=== PATIENT | female | born 1995 | race African-American/Black ===

== ENCOUNTER 2018-03-05 08:26 | Emergency (ER) | payer OTHER ==
[~2018-03-05] VITALS: Ht 160 cm; Wt 56.7 kg
[~2018-03-05 08:26] MED LIST: ACETAMINOPHEN-1 EAC1 PO; ANTIVERT25 MG PO; COLACE100 MG PO; FEOSOL325 M1 PO; IBUPROFEN 600600 M1 PO; KEFLEX500 MG PO; NORCO 5-325 TA1 EACH PO
[2018-03-05 08:35] VITALS: BP 106/78
[2018-03-05] MEDS ORDERED: TESSALON PERLE100 MG PO (09:34)
[2018-03-05] MEDS ORDERED: GUAIFENESIN-CODE5 ML PO (09:34)
[2018-03-05] MEDS ORDERED: PRILOSEC OTC20 MG PO (09:34)
== END 2018-03-05 09:22 | disposition home or self-care (01) ==
LOC: ER 08:26
DX: J06.9 Acute upper respiratory infection, unspecified (principal); R12 Heartburn; K21.9 Gastro-esophageal reflux disease without esophagitis

== ENCOUNTER 2019-06-23 20:58 | Emergency (ER) | payer OTHER ==
[~2019-06-23] VITALS: Ht 154.9 cm; Wt 61.2 kg
[~2019-06-23 20:58] MED LIST changes: +GUAIFENESIN-CODE5 ML PO; +PRILOSEC OTC20 MG PO; +TESSALON PERLE100 MG PO
[2019-06-23] MEDS ORDERED: LO LOESTRIN FE1 EACH PO (21:20)
[2019-06-23] MEDS ORDERED: BENADRYL25 MG PO (21:22)
[2019-06-23] MEDS ORDERED: PREDNISONE 20 M20 MG PO (21:22)
[2019-06-23 21:37] VITALS: BP 125/82
== END 2019-06-23 21:39 | disposition home or self-care (01) ==
LOC: ER 20:58
DX: L50.9 Urticaria, unspecified (principal)

== ENCOUNTER 2020-10-07 15:05 | Emergency (ER) | payer OTHER ==
[~2020-10-07] VITALS: Ht 154.9 cm; Wt 59.0 kg
[~2020-10-07 15:05] MED LIST changes: +BENADRYL25 MG PO; +LO LOESTRIN FE1 EACH PO; +PREDNISONE 20 M20 MG PO
[2020-10-07 16:18] LABS: URINE BILIRUBIN NEGATIVE (Negative); URINE BLOOD 3+ (Negative); URINE CLARITY CLEAR; URINE COLOR YELLOW; URINE GLUCOSE-RANDOM* NEGATIVE (Negative); URINE KETONES TRACE (Negative); URINE LEUKOCYTES-REFLEX NEGATIVE (Negative); URINE NITRITE-REFLEX NEGATIVE (Negative); URINE PROTEIN (DIPSTICK) NEGATIVE (Negative); URINE UROBILINOGEN 0.2 E.U./dl (0.2-1.0)
[2020-10-07 16:43] LABS: ABSOLUTE NEUTROPHILS 3.6 thou/uL (1.4-8.2)
[2020-10-07 16:45] LABS: EOSINOPHILS 1.3 % (0.0-3.0); HEMATOCRIT 41.5 % (37.0-47.0); HEMOGLOBIN 13.5 gm/dL (12.0-15.0); LYMPHOCYTES 31.6 % (24.0-44.0); MCH 28.6 pg (26.0-34.0); MCHC 32.5 g/dL (28.0-37.0); MONOCYTES 8.1 % (1.0-8.0); RBC 4.72 mil/uL (4.20-5.00); RDW 14.9 % (10.5-14.5); WBC 6.7 thou/uL (4.0-11.0)
[2020-10-07 16:53] LABS: CALCIUM 10.1 mg/dL (8.5-10.1); CREATININE 0.8 mg/dL (0.6-1.0)
[2020-10-07 16:55] LABS: POTASSIUM 3.9 mmol/L (3.5-5.1)
[2020-10-07 16:56] LABS: CASTS None Seen /LPF (None Seen); MUCUS 4-6 Moderate strn/LPF (None Seen); SQUAMOUS 4-10 Moderate /LPF (0-3)
[2020-10-07 16:57] LABS: BACTERIA-REFLEX None Seen /HPF (None Seen); CRYSTALS None Seen /LPF (None Seen); URINE RBC 0-2 Rare /HPF (0-2); URINE WBC-REFLEX 0-5 Rare /HPF (0-5)
[2020-10-07 17:14] LABS: PLATELET COUNT 271 thou/uL (150-400)
[2020-10-07 17:15] LABS: ANISOCYTOSIS 1+; OVALOCYTES FEW
[2020-10-07 18:17] VITALS: BP 114/85
== END 2020-10-07 18:17 | disposition home or self-care (01) ==
LOC: ER 15:05
PROVIDERS: Emergency Medicine
DX: O20.0 Threatened abortion (principal); Z79.899 Other long term (current) drug therapy; Z3A.01 Less than 8 weeks gestation of pregnancy

== ENCOUNTER 2020-10-21 20:15 | Emergency (ER) | payer OTHER ==
[~2020-10-21] VITALS: Ht 154.9 cm; Wt 58.1 kg
[2020-10-21] MEDS ORDERED: ALEVE220 M1 PO (20:25)
[2020-10-21 20:42] LABS: ABSOLUTE NEUTROPHILS 4.7 thou/uL (1.4-8.2); BASOPHILS 0.8 % (0.0-2.0); EOSINOPHILS 1.6 % (0.0-3.0); HEMATOCRIT 39.1 % (37.0-47.0); HEMOGLOBIN 12.7 gm/dL (12.0-15.0); LYMPHOCYTES 23.6 % (24.0-44.0); MCH 28.6 pg (26.0-34.0); MCHC 32.4 g/dL (28.0-37.0); MCV 88.2 fL (80.0-100.0); MONOCYTES 7.5 % (1.0-8.0); PLATELET COUNT 348 thou/uL (150-400); POLYS 66.5 % (36.0-66.0); RBC 4.44 mil/uL (4.20-5.00); RDW 15.4 % (10.5-14.5)
[2020-10-21 21:02] LABS: CALCIUM 9.6 mg/dL (8.5-10.1); CREATININE 1.1 mg/dL (0.6-1.0); POTASSIUM 3.7 mmol/L (3.5-5.1)
[2020-10-21 23:05] VITALS: BP 132/92
[2020-10-21 23:12] LABS: URINE BILIRUBIN NEGATIVE (Negative); URINE BLOOD 3+ (Negative); URINE CLARITY CLEAR; URINE COLOR YELLOW; URINE GLUCOSE-RANDOM* NEGATIVE (Negative); URINE KETONES NEGATIVE (Negative); URINE LEUKOCYTES-REFLEX NEGATIVE (Negative); URINE NITRITE-REFLEX NEGATIVE (Negative); URINE PROTEIN (DIPSTICK) NEGATIVE (Negative); URINE SPECIFIC GRAVITY 1.015 (1.005-1.035); URINE UROBILINOGEN 0.2 E.U./dl (0.2-1.0)
[2020-10-21 23:32] LABS: BACTERIA-REFLEX 1-9 Few /HPF (None Seen); CASTS None Seen /LPF (None Seen); CRYSTALS None Seen /LPF (None Seen); MUCUS None Seen strn/LPF (None Seen); SQUAMOUS 0-3 Few /LPF (0-3); URINE RBC 3-10 Few /HPF (0-2); URINE WBC-REFLEX 0-5 Rare /HPF (0-5)
[2020-10-21 23:33] LABS: AMORPHOUS URATES Few /LPF (None Seen)
== END 2020-10-21 23:06 | disposition short-term general hospital (02) ==
LOC: ER 20:15
PROVIDERS: Emergency Medicine
DX: O00.101 Right tubal pregnancy without intrauterine pregnancy (principal); Z79.899 Other long term (current) drug therapy; Z3A.08 8 weeks gestation of pregnancy

== ENCOUNTER → 2021-01-01 | Emergency (ER) | payer OTHER ==
[~2021-01-01] VITALS: Ht 154.9 cm; Wt 58.1 kg
[~2021-01-01] MED LIST changes: +ALEVE220 M1 PO
[2021-01-01 12:38] VITALS: BP 107/74
[2021-01-01 13:04] LABS: URINE BILIRUBIN NEGATIVE (Negative); URINE BLOOD NEGATIVE (Negative); URINE CLARITY CLOUDY; URINE COLOR YELLOW; URINE GLUCOSE-RANDOM* NEGATIVE (Negative); URINE KETONES NEGATIVE (Negative); URINE NITRITE-REFLEX NEGATIVE (Negative); URINE PROTEIN (DIPSTICK) NEGATIVE (Negative); URINE SPECIFIC GRAVITY >= 1.030 (1.005-1.035); URINE UROBILINOGEN 0.2 E.U./dl (0.2-1.0)
[2021-01-01 13:05] LABS: URINE LEUKOCYTES-REFLEX 1+ (Negative)
[2021-01-01 13:16] LABS: SQUAMOUS >10 Many /LPF (0-3)
[2021-01-01 13:17] LABS: BACTERIA-REFLEX 1-9 Few /HPF (None Seen); CASTS None Seen /LPF (None Seen); CRYSTALS None Seen /LPF (None Seen); URINE RBC None Seen /HPF (0-2); URINE WBC-REFLEX 0-5 Rare /HPF (0-5)
== END ==
LOC: ER 12:20
PROVIDERS: Nurse Practitioner Family
DX: Z32.01 Encounter for pregnancy test, result positive (principal); Z79.899 Other long term (current) drug therapy

== ENCOUNTER 2021-01-24 10:50 | Emergency (ER) | payer OTHER ==
[~2021-01-24] VITALS: Ht 154.9 cm; Wt 65.8 kg
[2021-01-24 10:54] VITALS: BP 129/82
[2021-01-24 11:23] LABS: URINE BILIRUBIN NEGATIVE (Negative); URINE BLOOD NEGATIVE (Negative); URINE CLARITY CLOUDY; URINE COLOR YELLOW; URINE GLUCOSE-RANDOM* NEGATIVE (Negative); URINE KETONES NEGATIVE (Negative); URINE LEUKOCYTES-REFLEX TRACE (Negative); URINE NITRITE-REFLEX NEGATIVE (Negative); URINE PROTEIN (DIPSTICK) NEGATIVE (Negative); URINE UROBILINOGEN 0.2 E.U./dl (0.2-1.0)
== END 2021-01-24 13:00 | disposition home or self-care (01) ==
LOC: ER 10:50
PROVIDERS: Nurse Practitioner
DX: S30.814A Abrasion of vagina and vulva, initial encounter (principal); Z90.89 Acquired absence of other organs; Z3A.09 9 weeks gestation of pregnancy; X58.XXXA Exposure to other specified factors, initial encounter; Y93.89 Activity, other specified; Y92.89 Other specified places as the place of occurrence of the external cause; Y99.9 Unspecified external cause status

== ENCOUNTER 2021-02-04 18:23 | Emergency (ER) | payer OTHER ==
[~2021-02-04] VITALS: Ht 154.9 cm; Wt 61.2 kg
[2021-02-04] MEDS ORDERED: ENBRACE HR SOF1 EACH PO (18:42)
[2021-02-04 19:09] LABS: ABSOLUTE NEUTROPHILS 3.9 thou/uL (1.4-8.2); EOSINOPHILS 3.1 % (0.0-3.0)
[2021-02-04 19:10] LABS: BASOPHILS 0.5 % (0.0-2.0); HEMATOCRIT 36.8 % (37.0-47.0); HEMOGLOBIN 12.2 gm/dL (12.0-15.0); LYMPHOCYTES 31.2 % (24.0-44.0); MCH 29.1 pg (26.0-34.0); MCHC 33.2 g/dL (28.0-37.0); MCV 87.6 fL (80.0-100.0); MONOCYTES 8.7 % (1.0-8.0); PLATELET COUNT 226 thou/uL (150-400); POLYS 56.5 % (36.0-66.0); RDW 14.6 % (10.5-14.5); WBC 6.9 thou/uL (4.0-11.0)
[2021-02-04 19:16] LABS: CALCIUM 9.2 mg/dL (8.5-10.1); CREATININE 0.7 mg/dL (0.6-1.0); POTASSIUM 3.6 mmol/L (3.5-5.1)
[2021-02-04] MEDS ORDERED: ONDANSETRON HCL4 M2 PO (19:36)
[2021-02-04 19:51] VITALS: BP 104/77
[2021-02-04] MEDS ORDERED: CARAFATE 1 GM TA1 G1 PO (20:01)
== END 2021-02-04 19:55 | disposition home or self-care (01) ==
LOC: ER 18:23
PROVIDERS: Nurse Practitioner
DX: O21.8 Other vomiting complicating pregnancy (principal); Z3A.11 11 weeks gestation of pregnancy

== ENCOUNTER 2021-03-03 09:01 | Emergency (ER) | payer OTHER ==
[~2021-03-03] VITALS: Ht 154.9 cm; Wt 62.1 kg
[~2021-03-03 09:01] MED LIST changes: +CARAFATE 1 GM TA1 G1 PO; +ENBRACE HR SOF1 EACH PO; +ONDANSETRON HCL4 M2 PO
[2021-03-03 10:09] LABS: URINE BILIRUBIN NEGATIVE (Negative); URINE BLOOD NEGATIVE (Negative); URINE CLARITY CLEAR; URINE COLOR YELLOW; URINE GLUCOSE-RANDOM* NEGATIVE (Negative); URINE KETONES NEGATIVE (Negative); URINE LEUKOCYTES-REFLEX TRACE (Negative); URINE NITRITE-REFLEX NEGATIVE (Negative); URINE PROTEIN (DIPSTICK) NEGATIVE (Negative); URINE UROBILINOGEN 0.2 E.U./dl (0.2-1.0)
[2021-03-03 10:12] LABS: ABSOLUTE NEUTROPHILS 4.2 thou/uL (1.4-8.2); BASOPHILS 0.6 % (0.0-2.0); EOSINOPHILS 0.5 % (0.0-3.0); HEMATOCRIT 36.4 % (37.0-47.0); LYMPHOCYTES 17.8 % (24.0-44.0); MCH 28.5 pg (26.0-34.0); MCHC 32.9 g/dL (28.0-37.0); MCV 86.7 fL (80.0-100.0); MONOCYTES 7.2 % (1.0-8.0); PLATELET COUNT 222 thou/uL (150-400); POLYS 73.9 % (36.0-66.0); WBC 5.6 thou/uL (4.0-11.0)
[2021-03-03 10:17] LABS: CALCIUM 9.1 mg/dL (8.5-10.1); CREATININE 0.7 mg/dL (0.6-1.0); POTASSIUM 3.7 mmol/L (3.5-5.1)
[2021-03-03 10:23] LABS: ALBUMIN 3.4 g/dL (3.4-5.0); TOTAL BILIRUBIN 0.4 mg/dL (0.2-1.0); TOTAL PROTEIN 7.6 g/dL (6.4-8.2)
[2021-03-03 12:59] VITALS: BP 126/84
--- NOTE | 2021-03-04 12:07 | EKG ---
[address] [address] ELECTROCARDIOGRAM REPORT Name: JANNA WILEY Room #: [facility]P [facility] CENTERHenrique#: [id number] Admission: 03/03/21 Attend Phys: Discharge: 03/03/21 Date of : [birth year] Report #: [id number] [facility] ED Test Date: 2021-03-03 Test Time: 12:21:24 Pat Name: JANNA WILEY Department: Room: Gender: Female Utility Clerk: rafael : 1995 Requested By: Order Number: [id number] MD: Devin Batres Measurements Intervals [place] Rate: 103 P: 59 NE: 145 QRS: 33 QRSD: 78 T: 9 QT: 356 QTc: 466 Interpretive Statements Sinus tachycardia Compared to ECG 09/15/2017 13:54:25 Sinus rhythm no longer present Electronically Signed On 03-04-2021 12:06:58 CDT by Devin Batres [email or web address] <ELECTRONICALLY SIGNED> By: Devin Batres MD 03/04/21 1206 1221 1221 MD TIFFANY Lea
== END 2021-03-03 13:00 | disposition home or self-care (01) ==
LOC: ER 09:01
PROVIDERS: Emergency Medicine
DX: O20.0 Threatened abortion (principal); R42 Dizziness and giddiness; Z3A.15 15 weeks gestation of pregnancy